=== PATIENT | female | born 1980 | race Caucasian/White ===

== ENCOUNTER 2019-01-24 22:29 | Emergency (ER) | payer BC ==
[~2019-01-24] VITALS: Ht 170.2 cm; Wt 80.3 kg
[2019-01-25] MEDS ORDERED: INTESTINEX680 M1 PO (09:21)
[2019-01-25] MEDS ORDERED: DOXYCYCLINE HY100 MG PO (09:21)
[2019-01-25] MEDS ORDERED: CLEOCIN HCL300 MG PO (09:21)
== END 2019-01-25 09:44 | disposition home or self-care (01) ==
LOC: ER 22:29 → EDBD 22:40 → ER 22:40
DX: L02.211 Cutaneous abscess of abdominal wall (principal)